=== PATIENT | male | born 1995 | race Caucasian/White ===

== ENCOUNTER 2017-07-30 18:27 | Emergency (ER) | payer BC ==
[2017-07-30] MEDS ORDERED: Ketorolac 60 MG/2 ML SDV IM ONE (19:28)
--- NOTE | 2017-07-30 19:29 | EDM.PDOC ---
ED HPI GENERAL MEDICAL PROBLEM - General Chief Complaint: Lower Extremity Injury/Pain Stated Complaint: PT HURT LT KNEE AND RT ANKLE Time Seen by Provider: 07/30/17 19:17 - History of Present Illness INITIAL COMMENTS - FREE TEXT/NARRATIVE: HISTORY AND PHYSICAL: History of present illness: The patient is a 21-year-old male who says that he has "bad ankles" who presents with a 2 day history of medial left knee pain worse when he is going up and down stairs and right ankle pain. Patient states he had no direct trauma and did not trip fall or twist any of the areas but that he goes up and down the stairs frequently and 2 days ago he noticed gradual onset of pain in these areas and was concerned. He is taken [id number] ibuprofen with his last dose yesterday and he has not noticed any swelling or warmth or redness to these regions. As for the right ankle area he says it hurts mostly laterally where the ankle joins the foot. The patient has no neurovascular changes and has no weakness. He said is more painful when he weight bears and he goes up and down the stairs. He has no other joint pain swelling and no other systemic complaints Review of systems: As per history of present illness and below otherwise all systems reviewed and negative. Past medical history: As per history of present illness and as reviewed below otherwise noncontributory. Surgical history: As per history of present illness and as reviewed below otherwise noncontributory. Social history: No reported history of drug or alcohol abuse. Family history: As per history of present illness and as reviewed below otherwise noncontributory. Physical exam: HEENT: Atraumatic, normocephalic, , negative for conjunctival pallor or scleral icterus, mucous membranes moist, throat clear, neck supple, nontender, trachea midline. Lungs: Clear to auscultation, breath sounds equal bilaterally, chest nontender. Heart: S1S2, regular rate and rhythm no overt murmurs Abdomen: Soft, nondistended, nontender. NABS. Pelvis: Stable nontender. Genitourinary: Deferred. Rectal: Deferred. Extremities: Atraumatic, there is no soft tissue swelling or joint effusions noted at the left knee or right ankle and there is no warmth or erythema ecchymosis noted. There are no palpable bony deformities in the regions of the patient's discomfort. I can reproduce the pain when I palpate the medial muscular area of the left knee were both hamstring and quadriceps insert and there is no ligamentous instability. The patient is able to engage at the knee both flexion and extension but there is some discomfort at the max point of both. The patient also states that he has some discomfort at the tendinous insertions of the ankle to foot laterally but again there is no redness defects or deformities. It is more difficult to pinpoint the area of discomfort here on palpation. Legs are negative for cords or calf pain. Neurovascular unremarkable. Neuro: Awake, alert, oriented. Cranial nerves II through XII unremarkable. Cerebellum unremarkable. Motor and sensory unremarkable throughout. Exam nonfocal. Diagnostics: X-ray right ankle Therapeutics: Toradol, Hans bandages to right ankle and left knee Impression: Musculoskeletal pain of left thigh/knee, right ankle foot pain Definitive disposition and diagnosis as appropriate pending reevaluation and review of above. left post.knee, right ankle Pain Score (Numeric/FACES): 2 - Related Data Allergies Allergy/AdvReac Type Severity Reaction Status Date / Time No Known Allergies Allergy Verified 07/30/17 18:57 Home Meds: Home Meds . [No Known Home Meds] 07/30/17 [History] Past Medical History - Past Health History Medical/Surgical History: Denies Medical/Surgical History - Past Surgical History HEENT Surgical History: Reports: Adenoidectomy, Tonsillectomy Social & Family History - Family History Family Medical History: Noncontributory - Tobacco Use Smoking Status *Q: Never Smoker - Recreational Drug Use Recreational Drug Use: No Review of Systems - Review of Systems Review Of Systems: ROS reveals no pertinent complaints other than HPI. ED EXAM, GENERAL - Physical Exam Exam: See Below (See dictation) Course - Vital Signs Last Recorded V/S: Last Vital Signs Temp 36.6 C 07/30/17 18:50 Pulse 71 07/30/17 18:50 Resp 16 07/30/17 18:50 BP 145/65 H 07/30/17 18:50 Pulse Ox 97 07/30/17 18:50 - Orders/Labs/Meds Orders: Active Orders 24 hr Category Date Time Status Ankle Min 3V Rt [CR] Stat Exams 07/30/17 19:27 Taken DME for Discharge [COMM] Stat Oth 10/13/17 20:14 Ordered Meds: Medications Discontinued Medications Generic Name Dose Route Start Last Admin Trade Name Dio PRN Reason Stop Dose Admin Ketorolac Tromethamine 60 mg 07/30/17 19:28 07/30/17 19:36 Toradol IM 07/30/17 19:29 60 mg ONETIME ONE Administration Departure - Departure Time of Disposition: 20:17 Disposition: Home, Self-Care 01 Condition: Good Clinical Impression: Musculoskeletal pain of left lower extremity Right ankle pain Qualifiers: Chronicity: acute Qualified Code(s): M25.571 - Pain in right ankle and joints of right foot - Discharge Information Referrals: PCP,None [Primary Care Provider] - Forms: ED Department Discharge Additional Instructions: The following information is given to patients seen in the emergency department who are being discharged to home. This information is to outline your options for follow-up care. We provide all patients seen in our emergency department with a follow-up referral. The need for follow-up, as well as the timing and circumstances, are variable depending upon the specifics of your emergency department visit. If you don't have a primary care physician on staff, we will provide you with a referral. We always advise you to contact your personal physician following an emergency department visit to inform them of the circumstance of the visit and for follow-up with them and/or the need for any referrals to a consulting specialist. The emergency department will also refer you to a specialist when appropriate. This referral assures that you have the opportunity for followup care with a specialist. All of these measure are taken in an effort to provide you with optimal care, which includes your followup. Under all circumstances we always encourage you to contact your private physician who remains a resource for coordinating your care. When calling for followup care, please make the office aware that this follow-up is from your recent emergency room visit. If for any reason you are refused follow-up, please contact the [facility] emergency department at and ask to speak to the emergency department charge nurse. [facility] Specialty Care--Orthopedic clinic Professional Building [address] [place] [address] [address] [place] [address] [address] Trung Orozco [address] [place] [address] [address] [place] [address] [facility] Specialty clinic- Podiatry [address] [place] [phone] Fax: [phone] Ice and elevate the areas after activities and wear Hans bandages for support. Please call and follow-up with orthopedics clinic for your knee discomfort and our foot and ankle doctors for your ankle pain. Please use medications as prescribed and needed and return to ER as needed and as discussed - My Orders Last 24 Hours: My Active Orders 07/30/17 19:27 Ankle Min 3V Rt [CR] Stat 07/30/17 20:14 DME for Discharge [COMM] Stat - Assessment/Plan Last 24 Hours: My Active Orders 07/30/17 19:27 Ankle Min 3V Rt [CR] Stat 07/30/17 20:14 DME for Discharge [COMM] Stat
--- NOTE | 2017-08-02 10:12 | CR ---
EXAM DATE: 07/30/17 PATIENT'S AGE: 21 Patient: BEVERLY MUIR Facility: [place], [place] Site . Site : 1995 Study: XRay Extremity ankle [id number] 7:48:18 PM Ordering Physician: Saúl Shearer Final Report: HISTORY: Pain without injury. FINDINGS: Three views of the right ankle demonstrates normal alignment. No fracture is seen. No soft tissue swelling. Joint spaces are maintained. IMPRESSION: Normal right ankle. Dictated by Tierra Warren MD @ 07/30/2017 8:13:18 PM Dictated by: Tierra Warren MD @ 07/30/2017 20:13:25 (Electronic Signature) Report Signed by Proxy. ISIDRO
== END 2017-07-30 20:33 | disposition home or self-care (01) ==
LOC: MW.ED 18:27
DX: M25.562 Pain in left knee (principal); M25.571 Pain in right ankle and joints of right foot
CPT/HCPCS: 73610-26-RT; 73610-RT; 96372; 99283; 99283-25; J1885